=== PATIENT | male | born 1985 | race Caucasian/White ===

== ENCOUNTER → 2021-05-13 | Outpatient (CLI) | payer BC ==
--- NOTE | 2021-05-13 15:42 | XR ---
EXAMINATION TYPE: XR finger LT DATE OF EXAM: 05/13/2021 COMPARISON: NONE HISTORY: Pain TECHNIQUE: Three views are submitted. FINDINGS: The osseous structures are intact. The joint spaces are preserved and there is no acute fracture or dislocation. Multiple tiny metallic densities are seen overlying the dorsum of the DIP joint first di git. IMPRESSION: 1. Multiple tiny metallic foreign body.
== END | disposition home or self-care (01) ==
LOC: RADXRMAIN 14:20
PROVIDERS: ATTEND Family Medicine
DX: S60.352A Superficial foreign body of left thumb, initial encounter (principal)